=== PATIENT | male | born 1970 | race Caucasian/White ===

== ENCOUNTER → 2019-06-30 16:46 | Outpatient (CLI) | payer SELFPAY ==
--- NOTE | 2019-06-30 16:58 | MRI_ITS ---
STUDY: MRI RIGHT SHOULDER REASON FOR EXAM: Male, 48 years old. RIGHT SHOULDER PAIN x 3-4 weeks, NKI, painful ROM and decreased strength TECHNIQUE: Standardized fat and water weighted pulse sequences were obtained in all 3 orthogonal planes. COMPARISON: None. FINDINGS: Mild supraspinatus and infraspinatus tendinosis and peritendinitis is but no macro tear or muscular atrophy. Normal subscapularis tendon. Normal teres minor tendon. Normal supraspinatus muscle. Normal infraspinatus muscle. Normal subscapularis muscle. Normal teres minor muscle. Normal glenohumeral articulation. Subchondral edema of the inferior glenoid. Normal humeral head and visualized proximal humerus. Normal biceps labral complex. Normal intracapsular long biceps tendon. Normal labrum. Normal capsulo- ligamentous complex. Normal rotator interval. Prominent veins in the spinal glenoid notch. No supraspinatus muscle denervation edema or fatty atrophy. 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 There is a Type II morphology (curved), with a anterior downsloping orientation. There is no subacromial-subdeltoid bursal fluid. Normal visualized coracohumeral and coracoacromial ligaments. Normal quadrilateral space. Normal axillary space. Normal deltoid muscle. Normal trapezius muscle. MRI/Upper Ext Joint Only(Routine) IMPRESSION: 1. 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 2. Mild supraspinatus and infraspinatus tendinosis and peritendinitis is but no macro tear or muscular atrophy. 3. Prominent veins in the spinal glenoid notch but no muscular atrophy. Electronically Signed: Dc Beal MD at 18:40 EST Tel , Service support ,
== END ==
PROVIDERS: PCP Family Medicine
DX: M25.511 Pain in right shoulder (principal)
CPT/HCPCS: 73221